=== PATIENT | female | born 1955 | race Caucasian/White ===

== ENCOUNTER 2017-07-16 16:29 | Emergency (ER) | payer OTHER ==
[~2017-07-16] VITALS: Ht 172.7 cm; Wt 63.5 kg
--- NOTE | 2017-07-16 17:24 | RADIOLOGY REPORT ---
EXAMINATION: XR CHEST CLINICAL INFORMATION: Cough COMPARISON: 02/01/2017 TECHNIQUE: 2 views of the chest were obtained. FINDINGS: Stable levoposition of the cardiac silhouette. Unchanged indistinct appearance of the right heart border due to the pectus excavatum. No new focal consolidation to suggest pneumonia. Lung volumes are unchanged from previous. No effusion, edema or pneumothorax. Mild degenerative changes in the spine. IMPRESSION: No significant interval change. No evidence of acute consolidation. Pectus excavatum.
--- NOTE | 2017-07-16 18:12 | ED INFLUENZA/URI COMPLAINT ---
History of Present Illness General Chief Complaint: General Adult Stated Complaint: PT HAVING PROBLEM BREATHING, Source: patient Exam Limitations: no limitations Vital Signs & Intake/Output Vital Signs & Intake/Output Vital Signs Date Time Temp Pulse Resp B/P B/P Pulse O2 O2 Flow FiO2 Mean Ox Delivery Rate 07/16 1828 Room Air 07/16 1828 60 20 141/66 100 Aerosol Mask 07/16 1644 96.3 78 18 131/78 97 Room Air Allergies Coded Allergies: No Known Allergies (07/16/17) Reconcile Medications Amoxicillin/Potassium Clav (Augmentin 875-125 Tablet) 875 MG-125 MG TABLET 1 TAB PO BID bronchitis Triage Note: PT TO ER C/C LARYNGITIS AND SOB X 5 DAYS. SEEN BY PCP ON 07/12 STARTED ON Z-PACK AND PREDNISONE W/O RELIEF. RA SAT 97% AFEBRILE. FLU SWAB OBTAINED AND SENT. Triage Nurses Notes Reviewed? yes Onset: Gradual Duration: day(s): (5) Timing: remote history Severity: moderate Severity Numbers: 7 Prior Episodes/Possible Cause: occassional episodes No Modifying Factors: none Associated Symptoms: cough HPI: Patient is a 62-year-old female presenting to the emergency department with chief complaint of upper respiratory congestion, losing her voice, dry cough has been going on for the past 5 days. She saw her primary care physician who gave her a Z-Bradford and decongestant. She reports the symptoms minimally improved so they started her on a prednisone taper starting yesterday. She's been using nebulizer treatments at home with full relief. No nausea or vomiting. Denies fevers or chills or body aches. No chest pain or palpitations. She does have history of pneumonia in the past and was concerned that this may result and pneumonia. Denies sputum production. No recent travel. She finished the Z-Bradford 2 days ago. (Lesley Tapia) Past History Travel History Traveled to [place] past 21 day No Medical History Any Pertinent Medical History? see below for history Respiratory: asthma Surgical History Surgical History: non-contributory Psychosocial History What is your primary language Afghan Tobacco Use: Quit >30 days ago Family History Hx Contributory? No (Lesley Tapia) Review of Systems Review of Systems Constitutional: Reports: no symptoms. Comments Review of systems: See HPI, All other systems negative. Constitutional, no chills fever or weight loss HEENT: No visual changes Cardiovascular: No chest pain ,palpitation , orthopnea or ankle swelling Skin, no jaundice no rashes Respiratory: No dyspnea sputum or hemoptysis GI: No nausea no vomiting : No dysuria No hematuria Muscle skeletal: no back pain, no neck pain, Neurologic: No numbness no confusion Psych: No stress anxiety or depression,. Heme/endocrine: No bruising no bleeding no polyuria or polydipsia Immunology: No splenectomy or history of AIDS (Lesley Tapia) Physical Exam Physical Exam General Appearance: well developed/nourished, no apparent distress, alert, awake , comfortable Ears, Nose, Throat: nasal congestion, nasal drainage Comments: Well-developed well-nourished person in no acute distress HEENT: Pupils equally round and reactive to light and accommodation. Nose is atraumatic. External auditory canal and Tympanic membranes clear. Pharynx is minimally erythematous, no exudate, no tonsillar enlargement.. No swelling or edema. Neck: Supple, no palpable anterior cervical lymphadenopathy, normal range of motion without pain or tenderness Cardiovascular: Regular rate and rhythms no murmurs rubs or gallops, normal JVP resp: No respiratory distress, diminished lung sounds bilaterally. No rhonchi or crackles appreciated. Extremity: No edema Neuro: Alert oriented x3 Skin: No appreciable rash on exposed skin, skin is warm and dry. Psych: Mood and affect is normal, memory and judgment is normal. Core Measures Sepsis Present: No Sepsis Focused Exam Completed? No (Lesley Tapia) Progress Differential Diagnosis: influenza, pneumonia, pharyngitis, sinusitis, bronchitis Plan of Care: Orders Procedure Date/time Status RAPID VIRAL INFLUENZA A 07/16 1647 Complete Microbiology 07/16 1648 NASOPHARYN: Influenza Virus A & B Rapid Smear - COMP X-rays negative for pneumonia. Negative flu swab. Patient's vitals are stable. Patient moving much better air after breathing treatment. She'll be started on Augmentin, continue prednisone taper. She'll follow up with her primary care physician in the next 5-7 days or return for worsening symptoms. Patient nontoxic. Diagnostic Imaging: Viewed by Me: Radiology Read. Discussed w/RAD: Radiology Read. Radiology Impression: PATIENT: OLIVER CHAVEZ PRESENT AGE: 62 PATIENT ACCOUNT NO: [id number] : 55 LOCATION: [facility] ORDERING PHYSICIAN: Jb Castañeda DO (TBS) SERVICE DATE: 07/16/17 EXAM TYPE: RAD - XRY- CHEST XRAY, TWO VIEWS EXAMINATION: XR CHEST CLINICAL INFORMATION: Cough COMPARISON: 02/01/2017 TECHNIQUE: 2 views of the chest were obtained. FINDINGS: Stable levoposition of the cardiac silhouette. Unchanged indistinct appearance of the right heart border due to the pectus excavatum. No new focal consolidation to suggest pneumonia. Lung volumes are unchanged from previous. No effusion, edema or pneumothorax. Mild degenerative changes in the spine. IMPRESSION: No significant interval change. No evidence of acute consolidation. Pectus excavatum. DICTATED BY: Deandre Valdes MD DATE/TIME DICTATED:07/16/171717 GRINDING ROOM SUPERVISOR:KENNETH DATE/TIME TRANSCRIBED:07/16/171717 CONFIDENTIAL, DO NOT COPY WITHOUT APPROPRIATE AUTHORIZATION. <Electronically signed in Other Vendor System> SIGNED BY: Deandre Valdes MD 07/16/171723 Initial ED EKG: none (Lesley Tapia) Departure Departure Disposition: HOME OR SELF CARE Condition: Stable Clinical Impression Primary Impression: Bronchitis Secondary Impressions: Asthma exacerbation Qualifiers: Asthma severity: mild Asthma persistence: unspecified Qualified Code: J45.901 - Unspecified asthma with (acute) exacerbation Laryngitis Referrals: Lynn Agee APRN (PCP/Family) Additional Instructions: follow Up with your primary care physician on Tuesday of next week, call to make an appointment. Take Augmentin and continue prednisone taper as prescribed. Continue using breathing treatments as previously directed. Increase fluids. Return for worsening symptoms or concerns. Departure Forms: Customer Survey General Discharge Information Prescriptions: Current Visit Scripts Amoxicillin/Potassium Clav (Augmentin 875-125 Tablet) 1 TAB PO BID #20 TAB (Lesley Tapia) PA/WIRE ROPE SALES REPRESENTATIVE Co-Sign Statement Statement: ED Attending supervision documentation- [] I saw and evaluated the patient. I have also reviewed all the pertinent lab results and diagnostic results. I agree with the findings and the plan of care as documented in the PA's/WIRE ROPE SALES REPRESENTATIVE's documentation. [x] I have reviewed the ED Record and agree with the PA's/WIRE ROPE SALES REPRESENTATIVE's documentation. [] Additions or exceptions (if any) to the PAs/WIRE ROPE SALES REPRESENTATIVE's note and plan are summarized below: [] (Jb Castañeda DO)
[2017-07-16 18:28] VITALS: BP 141/66
[2017-07-16] MEDS ORDERED: AUGMENTIN 875-1 EACH PO ×2 (18:34→19:02)
== END 2017-07-16 18:42 ==
LOC: ERH 16:29
DX: J45.901 Unspecified asthma with (acute) exacerbation (principal); J04.0 Acute laryngitis; Z87.891 Personal history of nicotine dependence
CPT/HCPCS: 71046; 87804; 87804-59